=== PATIENT | female | born 1965 | race Caucasian/White ===

== ENCOUNTER 2023-12-12 07:47 | Outpatient (REF) | payer OTHER, SELFPAY | END 2023-12-12 07:48 | disposition home or self-care (01) | LOC: HO.MAMMO 07:47 | PROVIDERS: PCP Internal Medicine; Referring Provider Obstetrics & Gynecology; Visit Provider Internal Medicine | DX: Z12.31 Encounter for screening mammogram for malignant neoplasm of breast (principal) | CPT/HCPCS: 77063; 77067 ==

== ENCOUNTER → 2023-12-12 08:00 | Outpatient (BNV) | payer OTHER, SELFPAY | PROVIDERS: PCP Internal Medicine; Referring Provider Obstetrics & Gynecology; Visit Provider Radiology Diagnostic Radiology | DX: Z12.31 Encounter for screening mammogram for malignant neoplasm of breast (principal) | CPT/HCPCS: 77063; 77067 ==

== ENCOUNTER 2024-12-23 15:18 | Outpatient (REF) | payer OTHER, SELFPAY ==
--- OUTSIDE RECORDS SUMMARY | 2024-12-23 16:23 | XMS_ITS | Clinical Summary ---
Author Organization [facility] Address [address] [place] [address] Care Team Providers Care Invoice Checker Name Role Phone Mary Ruby MD Primary Care Provider [phone] Source Comments PLEASE NOTE, if this patient is a minor, it may be UNLAWFUL to discuss sensitive information that is contained in these records (such as FAMILY PLANNING, MENTAL HEALTH or SUBSTANCE ABUSE) with the minor patient's parent or other person without the patient's specific authorization.[facility] Allergies Active Allergy Reactions Criticality Noted Date Comments Codeine GI intolerance,Intoleran ce - Will Not Trigger Allergy Alert,Nausea and Vomiting 09/11/2018 Other reaction(s): GI Intolerance Latex Itching 11/15/2024 Oxycodone GI intolerance 09/11/2018 Oxycodone-Acetaminop hen 11/15/2024 Seasonal Allergies Headache,Runny nose 11/15/19 25 Medications omeprazole magnesium (PRILOSEC OTC) 20 mg EC tablet Take 20 mg by mouth every morning before breakfast Active ibuprofen 200 mg tablet Take 200 mg by mouth 4 (four) times daily as needed Active diphenhydrAMINE -acetaminophen (TYLENOL PM EXTRA STRENGTH) 25-500 mg per tablet Take 1 Tablet by mouth nightly at bedtime as needed Active semaglutide, weight loss, (WEGOVY) 0.5 mg/0.5 mL pnijIndications :Morbid obesity (HCC-CMS) Inject 0.5 mg into the skin once a week 2 mL Active semaglutide, weight loss, (WEGOVY) 0.25 mg/0.5 mL pnijIndications :Morbid obesity (HCC-CMS) INJECT 0.25MG INTO THE SKIN ONE TIME PER WEEK 2 mL 5 12/14/19 25 Discontinu ed(Quantit y/Dosage and/or Sig change) Active Problems Problem Noted Date Diagnosed Date Environmental allergies 11/16/2024 Obstructive sleep apnea syndrome 11/16/2024 Overview (11/16/2024): AHI 41.5, min SpO2 70% Tubular adenoma of colon 11/16/2024 Prediabetes 11/16/2024 Morbid obesity (HCC-CMS) 11/16/2024 Diverticulosis of sigmoid colon 01/10/2020 Hemorrhoids 01/10/2020 Polyp, sigmoid colon 01/10/2020 Encounters Date Type Department Care Team Description 12/14/2024 3:40 PM EST Telemedicine Visit [address] [address] Mary Ruby MD Nausea (Primary Dx); Morbid obesity ([facility]) 12/14/2024 Travel 11/16/2024 8:20 AM EST Office Visit [address] [address] Mary Ruby MD Morbid obesity ([facility]) (Primary Dx); Encounter for screening for malignant neoplasm of colon; Encounter for other screening for malignant neoplasm of breast; Fatigue, unspecified type; IFG (impaired fasting glucose); Elevated blood pressure reading in office with white coat syndrome, without diagnosis of hypertension; Dyslipidemia 11/16/2024 Travel from Last 3 Months Immunizations Name Administration Dates Next Due Flu, Cell Culture based, Pre servative Free, 6m+, Flucelvax 09/11/2018 INFLUENZA, SEASONAL, INJECTABLE 09/03/2023,09/02,08/21/2021 INFLUENZA, SEASONAL, INJECTA BLE, PRESERVATIVE FREE 08/09/2020,09/14/2019 TDAP 08/21/2021 ZOSTER VACCINE, RECOMBINANT ([facility]) 1,11/11/2020 Family History Medical History Relation Name Comments Alzheimer's Disease Mother Breast cancer Mother Relation Name Status Comments Mother Social History Tobacco Use Types Packs/Day Years Used Date Smoking Tobacco: Never Smokeless Tobacco: Never Tobacco Cessation:Counseling Given: Yes Alcohol Use Standard Drinks/Week Comments Yes 0 (1 standard drink = 0.6 oz pur e alcohol) Social Connections Answer Date Recorded Connectedness 0 10/21/2024 Financial Resource Strain Answer Date R ecorded Financial Resource Strain 0 2023 Stress Answer Date Recorded Stress 0 10/21/2024 Physical Activity Answer Date Recorded Physical Activity 0 10/21/2024 Food Insecurity Answer Date Recorded Food 1 12/13/2024 Transportation Needs Answer Date Record ed Transportation 1 12/13/2024 Housing Stability Answer Date Recorded Housing 1 12/13/2024 Safety and Environment Answer Date Jaren rded Safety 0 10/21/2024 Utilities Answer Date Recorded Utilities 1 12/13/2024 Employment Answer Date Recorded Stress 0 10/21/2024 Comments No Sex and Gender Information Value Date Recorded Sex Assigned at Female 10/20/2024 8:20 AM PST Legal Sex Female 8:18 AM PST Gender Identity Female 10/20/2024 8:20 AM PST Sexual Orientation Straight 10/20/2024 8: 20 AM PST Last Filed Vital Signs Vital Sign Reading Time Taken Comments Blood Pressure 127/88 11/16/2024 9:27 AM EST Pulse 82 11/16/2024 8:21 AM EST Temperature 37.1 ??C (98.7 ??F) 11/16/2024 8:21 AM ES T Respiratory Rate - - Oxygen Saturation 95% 11/16/2024 8:21 AM EST Inhaled Oxygen Concentration - - Weight 120.2 kg (265 lb) 12/14/2024 4:02 PM EST Height 168.9 cm (5' 6.5 ) 11/16/2024 8:21 AM EST Body Mass Index 42.13 11/16/2024 8:21 AM EST Plan of Treatment Upcoming Encounters Date Type Department Care Team (Late st Contact Info) Description 02/16/2025 9:40 AM EDT Office Visit [facility] [address] [address] Mary Ruby MD [address] [place] [address] Health Maintenance Due Date Last Done Comments HPV Screening 1964 Hepatitis C Screening 1964 Pap + HPV 1964 HIV Screening 1979 Imm-Hepatitis B (1 of 3 - 19 + 3-dose series) 1983 Cervical Cancer Screening 1985 Pap Smear 1985 Breast Cancer Screening (Mammogram) 2004 CT Colonography 2009 Colonoscopy 2009 Colorectal Cancer Screening 2009 FIT/gFOBT 2009 Fecal DNA 2009 Flexible Sigmoidoscopy 2009 Lipid Screening 09/11/2021 09/11/2018 [id number] ( season) 2024 10/20/2021, 03/03/2021, 02/10/2021 Imm-Influenza (#1) 2024 09/03/2023, 1 , 08/21/2021, Additional history exists Diabetes Screening 11/16/2025 11/16/2024 Hypertension Screening (#1) 11/16/2025 Tobacco Screening 11/16/2025 11/16/2024 Imm-DTaP/Tdap/Td (2 - Td or Tdap) 08/21/2031 021 Imm-Zoster, Recombinant Completed 01/13/2021, 11/11 Alcohol and Drug Screen Completed 11/16/2024 Depression Annual Screen Completed 12/13/2024 Cervical Ablation/Cold-Knife Conization Discontinued Cervical Cryotherapy Discontinued Colposcopy Discontinued Endometrial Biopsy Discontinued Excision/Leep Discontinued HPV Genotyping Discontinued Vaginal Pap Discontinued Vulvoscopy Discontinued Procedures Procedure Name Priority Date/Time Associated Diagnosis Comments BLOOD COUNT COMPLETE AUTO&AUTO DIFRNTL WBC Routine 11/16/2024 10:03 AM EST Fatigue, unspecified type Dyslipidemia COMPREHENSIVE METABOLIC PANEL Routine 11/16/2024 10:03 AM EST Fatigue, unspecified type IFG (impaired fasting glucose) Elevated blood pressure reading in office with white coat syndrome, without diagnosis of hypertension Dyslipidemia TSH W/RFLX FREE T4 Routine 11/16/2024 10 :03 AM EST Fatigue, unspecified type HEALTH HISTORY SCANNED DOCUMENT 10/12/2024 3:00 AM EST from Last 3 Months Results * TSH W/RFLX FREE T4 (11/16/2024 10:03 AM EST) Pathologist [facility] TSH W/REFLEX TO FT4 1.81 0.40 - 4.50 mIU/L 11/17/2024 6:26 AM EST [facility] Blood Blood / Unknown 11/16/2024 1 0:03 AM EST 11/17/2024 4:35 AM EST Narrative [employer] [facility] - 11/17/2024 9:56 AM EST FASTING:YES Mary Ruby MD LAB - BLOOD DRAW Final Result [facility] [employer] [facility] [address] [address], [facility] [address] [address] * BLOOD COUNT COMPLETE AUTO&AUTO DIFRNTL WBC (11/16/2024 10:03 AM EST) Pathologist [facility] WHITE BLOOD CELL COUNT 9.7 3.8 - 10.8 Thousand/ uL 11/17/2024 3:34 AM EST [facility] RED BLOOD CELL COUNT 4.65 3.80 - 5.10 Million/u L 11/17/2024 3:34 AM EST [facility] HEMOGLOBIN 13.9 11.7 - 15.5 g/dL 11/17/2024 3:34 AM EST [facility] HEMATOCRIT 42.3 35.0 - 45.0 % 11/17/2024 3:34 AM EST [facility] MCV 91.0 80.0 - 100.0 fL 11/17/2024 3:34 AM EST [facility] MCH 29.9 27.0 - 33.0 pg 11/17/2024 3:34 AM EST [facility] MCHC 32.9 32.0 - 36.0 g/dL 11/17/2024 3:34 AM EST [facility] RDW 13.2 11.0 - 15.0 % 11/17/2024 3:34 AM EST [facility] PLATELET COUNT 274 140 - 400 Thousand/ uL 11/17/2024 3:34 AM EST [facility] MPV 11.1 7.5 - 12.5 fL 11/17/2024 3:34 AM EST [facility] ABSOLUTE NEUTROPHILS 6,926 1,500 - 7,800 cells/uL 11/17/2024 3:34 AM EST [facility] ABSOLUTE LYMPHOCYTES 1,814 850 - 3,900 cells/uL 11/17/2024 3:34 AM EST [facility] ABSOLUTE MONOCYTES 689 200 - 950 cells/uL 11/17/2024 3:34 AM EST [facility] ABSOLUTE EOSINOPHILS 223 15 - 500 cells/uL 11/17/2024 3:34 AM EST [facility] ABSOLUTE BASOPHILS 49 0 - 200 cells/uL 11/17/2024 3:34 AM EST [facility] NEUTROPHILS PCT 71.4 % 3:34 AM EST [facility] LYMPHOCYTES 18.7 % 11/17/2024 3:34 AM EST [facility] MONOCYTES 7.1 % 11/17/2024 3:34 AM EST [facility] EOSINOPHILS 2.3 % 11/17/2024 3:34 AM EST [facility] BASOPHILS 0.5 % 11/17/2024 3:34 AM EST [facility] Blood Blood / Unknown 11/16/2024 1 0:03 AM EST 11/17/2024 2:37 AM EST Narrative [facility] - 11/17/2024 9:56 AM EST FASTING:YES For adults, a slight decrease in the calculated MCHC value (in the range of 30 to 32 g/dL) is most likely not clinically significant; however, it should be interpreted with caution in correlation with other red cell parameters and the patient's clinical condition. us Mary Ruby MD LAB - BLOOD DRAW Final Result [facility] [address] [address], [employer] [facility] [address] [place] [address] * (ABNORMAL) COMPREHENSIVE METABOLIC PANEL (11/16/2024 10:03 AM EST) GLUCOSE 100(H) 65 - 99 mg/dL 11/17/2024 9:48 AM [employer] [facility] UREA NITROGEN (BUN) 19 7 - 25 mg/dL 11/17/2024 9:48 AM [employer] [facility] CREATININE (blood) 0.93 0.50 - 1.03 mg/dL 11/17/2024 9:48 AM [employer] [facility] EGFR 71 > OR = 60 mL/min/1. 73m2 11/17/2024 9:48 AM [employer] [facility] BUN/CREATININE RATIO SEE NOTE: 6 - 22 (calc) 11/17/2024 9:48 AM [employer] [facility] SODIUM 139 135 - 146 mmol/L 11/17/2024 9:48 AM [employer] [facility] POTASSIUM 4.4 3.5 - 5.3 mmol/L 11/17/2024 9:48 AM [employer] [facility] CHLORIDE 105 98 - 110 mmol/L 11/17/2024 9:48 AM [employer] [facility] CARBON DIOXIDE 20 20 - 32 mmol/L 11/17/2024 9:48 AM [employer] [facility] CALCIUM 9.3 8.6 - 10.4 mg/dL 11/17/2024 9:48 AM [employer] [facility] PROTEIN, TOTAL 7.5 6.1 - 8.1 g/dL 11/17/2024 9:48 AM [employer] [facility] ALBUMIN 4.5 3.6 - 5.1 g/dL 11/17/2024 9:48 AM [employer] [facility] GLOBULIN 3.0 1.9 - 3.7 g/dL (calc) 11/17/2024 9:48 AM [employer] [facility] ALBUMIN/GLOBULI N RATIO 1.5 1.0 - 2.5 (calc) 11/17/2024 9:48 AM [employer] [facility] BILIRUBIN, TOTAL 0.4 0.2 - 1.2 mg/dL 11/17/2024 9:48 AM [employer] [facility] ALKALINE PHOSPHATASE 46 37 - 153 U/L 11/17/2024 9:48 AM [employer] [facility] AST 45(H) 10 - 35 U/L 11/17/2024 9:48 AM [employer] [facility] ALT 55(H) 6 - 29 U/L 11/17/2024 9:48 AM EST [employer] Blood Blood / Unknown 11/16/2024 1 0:03 AM EST 11/17/2024 4:35 AM EST Narrative [facility] [employer] - 11/17/2024 9:56 AM EST FASTING:YES . ? Fasting reference interval . For someone without known diabetes, a glucose value between 100 and 125 mg/dL is consistent with prediabetes and should be confirmed with a follow-up test. . ?? Not Reported: BUN and Creatinine are within ?? reference range. . Mary Ruby MD LAB - BLOOD DRAW Final Result [facility] [facility] [address] [place] [address], [employer] [address] [place] [phone] * HEALTH HISTORY SCANNED DOCUMENT (10/12/2024 3:00 AM EST) 10/12/2024 3:00 AM EST [facility] Provider Default SCAN OTHER ORDERS Final Re sult from Last 3 Months Insurance [facility] Care Teams Invoice Checker Relationship Specialty Start Date End Date Mary Ruby MD [address] [place] [id number] PCP - General Family Medicine, Physician 10/20/24
--- OUTSIDE RECORDS SUMMARY | 2024-12-23 16:23 | XMS_ITS | Encounter Summary ---
Author Organization [facility] Address [address] [address] Care Team Providers Care Pediatric Immunologist Name Role Phone Mary Ruby MD Primary Care Provider [phone] Encounter Details Date Type Department Care Team (Latest Contact Info) Description 12/14/2024 Travel Social History Tobacco Use Types Packs/Day Years Used Date Smoking Tobacco: Never Smokeless Tobacco: Never Alcohol Use Standard Drinks/Week Comments Yes 0 [...] Orientation Straight 10/20/2024 8: 20 AM PST documented as of this encounter Plan of Treatment Upcoming Encounters Date Type Department Care Team ( st Contact Info) Description 02/16/2025 9:40 AM EDT Office Visit [address] [address] Mary Ruby MD [address] [place] [address] documented as of this encounter Visit Diagnoses Not on filedocumented in this encounter Additional Health Concerns Assessment Noted Time PHQ-9 Depression Total Score: 1 12/13/19 25 7:14 AM PST documented as of this encounter Care Teams Pediatric Immunologist Relationship Specialty Start Date End Date Mary Ruby MD [address] [place] [address] PCP - General Family Medicine, Physician 10/20/24 documented as of this encounter
--- OUTSIDE RECORDS SUMMARY | 2024-12-23 16:23 | XMS_ITS | Encounter Summary ---
Author Organization [facility] Address [address] [address] Care Team Providers Care Commodity Supervisor Name Role Phone Mary Ruby MD Primary Care Provider [phone] Reason for Visit * Reason Comments Follow Up Encounter Details Date Type Department Care Team (Latest Contact Info) Description 12/14/2024 3:40 PM EST Telemedicine Visit [facility] [address] [address] Mary Ruby MD [address] [place] [address] Nausea (Primary Dx); Morbid obesity ([facility]) Social History Tobacco Use Types Packs/Day Years [...] AM PST documented as of this encounter Last Filed Vital Signs Vital Sign Reading Time Taken Comments Blood Pressure - - Pulse - - Temperature - - Respiratory Rate - - Oxygen Saturation - - Inhaled Oxygen Concentration - - Weight 120.2 kg (265 lb) 12/14/2024 4:02 PM EST Height - - Body Mass Index 42.13 11/16/2024 8:21 AM EST documented in this encounter Progress Notes * Mary Ruby MD - 12/14/2024 3:40 PM EST Lindsey was seen today for follow up. Diagnoses and associated orders for this visit: 1. Nausea (Primary) 2. Morbid obesity ([facility]) - semaglutide, weight loss, (WEGOVY) 0.5 mg/0.5 mL pnij; Inject 0.5 mg into the skin once a week Pleasant 58-year-old female here for weight and medication check. Her start date of Wegovy was November 29, 2024. Tolerating Wegovy 0.25 mg weekly but with minimal weight loss. Only side effect at this point is nausea. Reviewed her my fitness pal log, average caloric intake,. Goal over the next months is to work on increasing her protein intake to 20 to 30 g per meal. To bring her fitness pal log with her to next appointment in February. Increased dose of semaglutide to 0.5 mg weekly. Encouraged goal of 150 minutes of physical activity weekly. Body mass index is 42.13 kg/m??. Healthy lifestyle for 18+: The patient was counseled regarding nutrition and physical activity (Patient-Rptd) 0 SUBJECTIVE HPI Initial patient assessment was conducted using telemedicine, real time audio and video. A healthcare professional at the site identified below, confirmed that the patient (or patient's branch sales and service representative) gave verbal consent for the telemedicine visit. I distant provider, was located at the [facility]. Lindsey Packer is a 58 year old female who is here for check in on the wegovy. She is doing fine but has noticed today that she is a little nauseous. She is drinking more water to see if that will help. She has been tracking her intake with my fitness pal and is trying to maintaina< 1500kcal diet. She is having trouble knowing what to eat that will also be tolerated with her IBS - does not handle salads well. Patient Active Problem List Diagnosis Diverticulosis of sigmoid colon Environmental allergies Hemorrhoids Polyp, sigmoid colon Obstructive sleep apnea syndrome Tubular adenoma of colon Prediabetes Morbid obesity (HCC-CMS) Pertinent Past medical, family, and social histories are reviewed and updated in the chart. Allergies reviewed and without change. Medications: Medication list was reviewed/updated in the chart. Physical Examination: Wt 265 lb (120.2 kg) BMI 42.13 kg/m?? OB Status Perimenopausal Smoking Status Never BSA 2.37 m?? Physical Exam Constitutional: General: She is not in acute distress. Appearance: Normal appearance. She is not ill-appearing. Pulmonary: Effort: Pulmonary effort is normal. Neurological: Mental Status: She is alert and oriented to person, place, and time. Psychiatric: Mood and Affect: Mood normal. Behavior: Behavior normal. I reviewed Point of Care labs: No results found for this or any previous visit (from the past 24 hours). Recent Labs: Recent labs reviewed and pertinent results addressed as above Recommendations for next visit: weight Future Appointments Date Time Provider Department Center 12/14/2024 3:40 PM Mary Ruby MD [facility] 02/16/2025 9:40 AM Mary Ruby MD [facility] Mary Ruby MD [facility] documented in this encounter Plan of Treatment Upcoming Encounters Date Type Department Care Team (Late st Contact Info) Description 02/16/2025 9:40 AM EDT Office Visit [facility] [address] [facility] [address] [place] [address] Mary Ruby MD [address] [place] [address] documented as of this encounter Visit Diagnoses Diagnosis Nausea- Primary Nausea alone Morbid obesity (HCC-CMS) Morbid obesity documented in this encounter Additional Health Concerns Assessment Noted Time PHQ-9 Depression Total Score: 1 12/13/19 25 7:14 AM PST documented as of this encounter Care Teams Commodity Supervisor Relationship Specialty Start Date End Date Mary Ruby MD [address] [place] [address] PCP - General Family Medicine, Physician 10/20/24 documented as of this encounter
== END 2024-12-23 15:19 | disposition home or self-care (01) ==
LOC: HO.MAMMO 15:18
DX: Z12.31 Encounter for screening mammogram for malignant neoplasm of breast (principal)
CPT/HCPCS: 77063; 77067

== ENCOUNTER → 2024-12-23 15:30 | Outpatient (BNV) | payer OTHER, SELFPAY | PROVIDERS: Visit Provider Internal Medicine | DX: Z12.31 Encounter for screening mammogram for malignant neoplasm of breast (principal) | CPT/HCPCS: 77063; 77067 ==